=== PATIENT | female | born 1965 | race Caucasian/White ===

== ENCOUNTER → 2016-06-05 | Outpatient (CLI) | payer BC ==
--- NOTE | 2016-06-07 12:13 | MM ---
Reason for exam: screening (asymptomatic). Last mammogram was performed 1 year and 5 months ago. History: Patient is postmenopausal and had first child at age 30. Benign excisional biopsy of the right breast, 2014. Taking estrogen for 14 years 5 months. Physical Findings: A clinical breast exam by your physician is recommended on an annual basis and results should be correlated with mammographic findings. MG 3D Screening Mammo W/Cad Bilateral CC, MLO, and XCCL view(s) were taken. Prior study comparison: December 28, 2014, bilateral MG 3d diag mammo w/cad [place]. December 24, 2013, mammogram, performed at [facility]. November 11, 2011, mammogram, performed at [facility]. The breast tissue is heterogeneously dense. This may lower the sensitivity of mammography. No significant changes when compared with prior studies. ASSESSMENT: Negative, BI-RAD 1 RECOMMENDATION: Routine screening mammogram of both breasts in 1 year.
== END | disposition home or self-care (01) ==
LOC: RADMAMWWP 16:24
PROVIDERS: ATTEND Obstetrics & Gynecology
DX: Z12.31 Encounter for screening mammogram for malignant neoplasm of breast (principal)
CPT/HCPCS: 77063; G0202

== ENCOUNTER → 2017-09-24 | Outpatient (CLI) | payer BC ==
--- NOTE | 2017-09-25 15:18 | MM ---
Reason for exam: screening (asymptomatic). Last mammogram was performed 1 year and 4 months ago. History: Patient is postmenopausal and had first child at age 30. Benign excisional biopsy of the right breast, 2014. Taking estrogen for 15 years 9 months. MG Screening Mammo w CAD Bilateral CC and MLO view(s) were taken. Prior study comparison: June 05, 2016, bilateral MG 3d screening mammo w/cad. December 28, 2014, bilateral MG 3d diag mammo w/cad [place]. The breast tissue is heterogeneously dense. This may lower the sensitivity of mammography. There are stable benign calcifications in the left breast. Focal asymmetry outer left CC. Finding is new when compared to prior exams. ASSESSMENT: Incomplete: need additional imaging evaluation, BI-RAD 0 RECOMMENDATION: Special view mammogram of the left breast.
== END | disposition home or self-care (01) ==
LOC: RADMAMWWP 15:26
PROVIDERS: ATTEND Obstetrics & Gynecology
DX: Z12.31 Encounter for screening mammogram for malignant neoplasm of breast (principal)
CPT/HCPCS: 77067

== ENCOUNTER → 2017-10-02 | Outpatient (CLI) | payer BC ==
--- NOTE | 2017-10-02 15:07 | MM ---
Reason for exam: additional evaluation requested from abnormal screening. Last mammogram was performed less than 1 month ago. History: Patient is postmenopausal and had first child at age 30. Benign excisional biopsy of the right breast, 2014. Taking estrogen for 15 years 9 months. Physical Findings: Nurse did not find any significant physical abnormalities on exam. MG Work Up Mamm w CAD LT Spot compression CC, spot compression MLO, spot compression ML, and ML view(s) were taken of the left breast. Prior study comparison: September 24, 2017, bilateral MG screening mammo w CAD. June 05, 2016, bilateral MG 3d screening mammo w/cad. The breast tissue is heterogeneously dense. This may lower the sensitivity of mammography. There is no discrete abnormality on compression. No significant new findings when compared with previous films. These results were verbally communicated with the patient and result sheet given to the patient on 10/02/17. ASSESSMENT: Benign, BI-RAD 2 RECOMMENDATION: Return to routine screening mammogram schedule for both breasts.
== END | disposition home or self-care (01) ==
LOC: RADMAMWWP 13:17
PROVIDERS: ATTEND Obstetrics & Gynecology
DX: R92.8 Other abnormal and inconclusive findings on diagnostic imaging of breast (principal)
CPT/HCPCS: 77065